=== PATIENT | male | born 1995 | race Caucasian/White ===

== ENCOUNTER → 2023-01-12 | Outpatient (CLI) | payer OTHER | LOC: COL.PUL 10:11 | DX: R06.02 Shortness of breath (principal) ==

== ENCOUNTER → 2023-02-15 | Outpatient (CLI) | payer OTHER | LOC: COL.PUL 10:36 | DX: R06.02 Shortness of breath (principal) | CPT/HCPCS: J7674 ==

== ENCOUNTER 2024-05-13 14:53 | Outpatient (RCR) | payer OTHER | END 2024-05-17 | disposition home or self-care (01) | LOC: COL.CR | DX: J45.50 Severe persistent asthma, uncomplicated (principal) ==

== ENCOUNTER 2024-06-19 15:00 | Outpatient (RCR) | payer OTHER | END 2024-07-17 | disposition home or self-care (01) | LOC: COL.CR | DX: Z02.89 Encounter for other administrative examinations (principal) ==